=== PATIENT | male | born 1945 | race Caucasian/White ===

== ENCOUNTER 2018-10-23 01:52 | Inpatient (IN) ==
[2018-10-23] MEDS ORDERED: DUONEB (A & A) INH ONE (02:04)
[2018-10-23] MEDS ORDERED: DECADRON IM ONE (02:04)
--- NOTE | 2018-10-23 02:06 | PROVIDER DOCUMENTATION ---
HPI-Respiratory General - General Chief Complaint: Shortness of Breath Stated Complaint: SOB - COPD Time Seen by Provider: 10/23/18 02:03 Source: patient Allergies/Adverse Reactions: Patient Allergies Allergy/AdvReac Type Severity Reaction Status Date / Time cimetidine [From Tagamet] Allergy RASH Verified 10/23/18 02:03 cimetidine HCl * Allergy RASH Verified 10/23/18 02:03 [From Tagamet] ciprofloxacin [From Cipro] Allergy RASH Verified 10/23/18 02:03 ciprofloxacin HCl * Allergy RASH Verified 10/23/18 02:03 [From Cipro] Home Medications: Home Medication List Medication Instructions Recorded Confirmed Last Taken Type Albuterol Sulfate Inhaler 2 puff INH Q6H PRN PRN 10/30/12 03/11/14 10/30/12 08:30 History [Ventolin Hfa] Albuterol Sulfate Inhaler 2 puff INH TID #1 inhaler 10/30/12 03/11/14 Unknown Rx [Ventolin Hfa] Allopurinol [Zyloprim] 300 mg PO DAILY 10/30/12 03/11/14 10/29/12 20:00 History Ipratropium/Albuterol Sulfate 4 gm IH 10/30/12 03/11/14 10/30/12 06:00 History [Combivent Respimat Inhal [place]] Levothyroxine [Synthroid] 50 microgm PO DAILY 10/30/12 03/11/14 10/30/12 08:00 History Methylprednisolone [Medrol Dosepak] 4 mg PO DIRECTED #1 package 10/30/12 03/11/14 Unknown Rx Metoprolol Succinate E.r. [Toprol 50 mg PO HS 10/30/12 03/11/14 10/29/12 20:00 History Xl] Metoprolol Succinate E.r. [Toprol 100 mg PO DAILY 10/30/12 03/11/14 10/29/12 20:00 History Xl] SIMVAstatin [Zocor] 40 mg PO QHS 10/30/12 03/11/14 10/29/12 20:00 History Prednisone 50 mg PO DAILY #4 tablet 04/21/13 03/11/14 Unknown Rx Benzonatate [Tessalon] 100 mg PO Q4H PRN PRN #30 capsule 01/05/15 Unknown Rx Guaifenesin/Dm E.r. [Mucinex Dm] 1 each PO BID #20 tablet 03/11/14 Unknown Rx Oseltamivir [Tamiflu] 75 mg PO BID #10 capsule 03/11/14 Unknown Rx - History of Present Illness-Resp Nature of Presenting Problem: Patient is a 73 year old white male with history of COPD, tobacco abuse, obesity who presents with increasing shortness of breath for past 2 days. Denies fever or history of CAD. Currently taking Bactrim DS for UTI. Followed by Dr. Colvin Severity in ED: reports: mild Onset/Duration: reports: 2 days ago Timing: reports: still present Cough Quality/Degree: reports: dry cough Episode Frequency: chronic episodes Current Respiratory Medication Therapy: Initiated none Associated Symptoms: denies: cough, fever/chills Similar Symptoms Previously?: Yes Recently seen or treated by another doctor?: No Review of Systems - Adult - REVIEW OF SYSTEMS - ADULT Constitutional: denies: chills, fever Eyes: denies: dry eyes, blurred vision Ears, Nose, Mouth & Throat: denies: throat pain Cardiovascular: reports: see HPI Respiratory: reports: see HPI, shortness of breath, wheezing Gastrointestinal: denies: abdominal pain, nausea, vomiting Integumentary: reports: no symptoms reported Neurological: reports: no symptoms reported Psychiatric: reports: see HPI, anxiety Endocrine: reports: no symptoms reported Hematologic/Lymphatic: reports: no symptoms reported Allergic/Immunologic: reports: no symptoms reported Past History - Adult - PAST MEDICAL HISTORY-ADULT Review of Records: reports: Old Records Reviewed, Nursing Assessment Review, Medications Reviewed, Social history reviewed & non-contributory. Major Childhood Illnesses: reports: denies history Cardiovascular: reports: HTN, hyperlipidemia Respiratory: reports: asthma, COPD Gastrointestinal: reports: denies history Obstetrical/Gynecological: reports: denies history Genitourinary: reports: denies history Musculoskeletal: reports: denies history Neurological: reports: denies history Endocrine/Immune: reports: denies history Other Conditions: reports: denies history - PRIOR SURGERIES/PROCEDURES Surgical/Procedure History: reports: orthopedic (extremity), joint replacement - IMMUNIZATION STATUS Childhood Immunizations: See Nurse Assessment Flu Vaccine: UTD - FAMILY HISTORY Family History: reviewed, not pertinent Physical Exam-General - PHYSICAL EXAM-ADULT Initial Vital Signs Reviewed: Yes - CONSTITUTIONAL General Appearance: alert, obese, anxious - EYES Eyes: other (clear) - HEAD, EARS, NOSE, MOUTH & THROAT HENMT: moist mucous membranes, other (upper dentures) - NECK Neck: non-tender, full range of motion, supple. negative: trachial deviation - RESPIRATORY Respiratory: no pleuratic chest pain, no respiratory distress, no accessory m uscle use, decreased breath sounds, wheezing - CARDIOVASCULAR Cardiovascular: regular rate, rhythm - GASTROINTESTINAL (ABDOMEN) Abdominal Exam: non tender, soft, no organomegaly - LYMPHATIC Lymphatic: no adenopathy - MUSCULOSKELETAL Back Exam: normal inspection, no CVA tenderness Extremity: normal range of motion, non-tender, normal gait, normal inspection Peripheral Pulses: radial (R): 2+, radial (L): 2+ - SKIN Integumentary: normal color, normal turgor - NEUROLOGIC Neurologic: grossly normal, no motor/sensory deficits - PSYCHIATRIC Psych/Mental Status: anxious - HEART Score HEART Score: History: Slightly Suspicious HEART Score: ECG: Normal HEART Score: Age: > or = 65 Years HEART Score: Risk Factors for Atherosclerotic Disease: > or = 3 Risk Factors or History of Atherosclerotic Disease HEART Score: Troponin: < or = Normal Limit Total HEART Score:: 4 Progress - PLAN OF CARE/RESULTS Progress/Plan/Lab Results: Vital Signs - 8 hr 10/23/18 01:56 10/23/18 02:17 Temperature 97.8 F Pulse Rate 78 74 Respiratory Rate 18 22 Blood Pressure 140/69 O2 Sat by Pulse Oximetry 99 98 Laboratory Results - last 24 hr 10/23/18 10/23/18 10/23/18 02:15 02:15 02:15 WBC 11.05 H RBC 4.28 L Hgb 12.9 L Hct 35.1 L MCV 82.0 MCH 30.1 MCHC 36.8 RDW Std Deviation 12.3 Plt Count 236 MPV 9.9 Immature Gran % (Auto) 0.6 H Neut % (Auto) 84.4 H Lymph % (Auto) 10.2 L [place] % (Auto) 4.2 Eos % (Auto) 0.3 Baso % (Auto) 0.3 Immature Gran # (Auto) 0.07 H Neut # (Auto) 9.33 H Lymph # (Auto) 1.13 L [place] # (Auto) 0.46 Eos # (Auto) 0.03 Baso # (Auto) 0.03 D-Dimer, Quantitative 1.05 H Sodium Potassium Chloride Carbon Dioxide Anion Gap BUN Creatinine Estimated GFR/1.73 m2 BUN/Creatinine Ratio Glucose Calculated Osmolality Calcium Total Bilirubin AST ALT Alkaline Phosphatase Creatine Kinase Creatine Kinase Index CK-MB (CK-2) Troponin T < 0.010 [id number]-[id number] Pept Total Protein Albumin Globulin Albumin/Globulin Ratio 10/23/18 10/23/18 02:15 02:15 WBC RBC Hgb Hct MCV MCH MCHC RDW Std Deviation Plt Count MPV Immature Gran % (Auto) Neut % (Auto) Lymph % (Auto) [place] % (Auto) Eos % (Auto) Baso % (Auto) Immature Gran # (Auto) Neut # (Auto) Lymph # (Auto) [place] # (Auto) Eos # (Auto) Baso # (Auto) D-Dimer, Quantitative Sodium 125 L Potassium 3.9 Chloride 92 L Carbon Dioxide 20 L Anion Gap 14 BUN 28 H Creatinine 2.4 H Estimated GFR/1.73 m2 27 BUN/Creatinine Ratio 12 Glucose 170 H Calculated Osmolality 261 Calcium 8.8 Total Bilirubin 0.40 AST 16 ALT 15 Alkaline Phosphatase 82 Creatine Kinase 283 H Creatine Kinase Index 0.8 CK-MB (CK-2) 2.13 Troponin T Vel-G-Savpbsmkgpr Pept 2803 H Total Protein 6.2 L Albumin 4.1 Globulin 2.0 Albumin/Globulin Ratio 2.0 Orders Category Date Time Status Admit - [facility] Routine AdmDCTranf 10/23/18 03:26 Active Activity - Strict Bedrest ORDERED Care 10/23/18 03:26 Active Cardiac Monitoring DIRECTED Care 10/23/18 02:08 Active Resuscitation Status Routine Care 10/23/18 03:26 Ordered Saline Loc DIRECTED Care 10/23/18 03:26 Active Vital Signs Order Q 4-HR ASSESS Care 10/23/18 03:26 Active Z-Document. for Tele Applied ORDERED Care 10/23/18 03:28 Active Heart Healthy Diet Diet 10/23/18 03:27 Active CHEST-PORTABLE [RAD] Stat Exams 10/23/18 02:04 Taken LUNG SCAN / VQ [NM] Stat Exams 10/23/18 03:28 Ordered BNP [PRO B-NATRIURETIC PEPTIDE] Stat Lab 10/23/18 02:15 Completed CBC WITH ELECTRONIC DIFF [HEME] Stat Lab 10/23/18 02:15 Completed CK PROFILE [SP CHEM] Stat Lab 10/23/18 02:15 Completed CMP [COMPREHENSIVE METABOLIC PANEL] [CHEM] Stat Lab 10/23/18 02:15 Completed D-DIMER [COAG] Stat Lab 10/23/18 02:15 Completed TROPONIN T Stat Lab 10/23/18 02:15 Completed Albuterol 2.5MG/Ipratrop 0.5MG [Duoneb (A & A)] Med 10/23/18 02:04 Discontinued 3 ml INH NOW ONE Albuterol 2.5MG/Ipratrop 0.5MG [Duoneb (A & A)] Med 10/23/18 03:30 Active 3 ml INH RTQ4H Dexamethasone [Decadron] Med 10/23/18 02:04 Discontinued 10 mg IM NOW ONE Methylprednisolone Sod Succ [Solu-Medrol] Med 10/23/18 02:24 Discontinued 125 mg IV NOW ONE Methylprednisolone Sod Succ [Solu-Medrol] Med 10/23/18 08:30 Active 125 mg IV Q6H Sulfamethoxazole/Tmp D.s. [Septra Ds] Med 10/23/18 09:00 Ordered 1 each PO BID Aerosol Treatments Routine Oth 10/23/18 02:04 Completed Aerosol Treatments Routine Oth 10/23/18 03:29 Active Aerosol Treatments Stat Oth 10/23/18 02:04 Completed Aerosol Treatments Stat Oth 10/23/18 03:29 Active Oxygen Device Stat Oth 10/23/18 02:08 Active Telemetry [OM.EQ] Routine Oth 10/23/18 03:26 Active EKG [EKG] Stat Ther 10/23/18 01:59 Draft Transfer/Admit Order [TRANSFER] Routine Transfer 10/23/18 03:30 Ordered Result Diagrams: 10/23/18 02:15 10/23/18 02:15 - EKG 1 Time of EKG reading by physician:: 01:58 EKG Read and Signed by:: Ashkan Page EKG Interpretation (*Must complete 3 of following elements*): Normal Rate: 78 Rhythm: NSR [place]: normal QRS: normal OR Interval: normal ST Wave: normal Comments: no STEMI Departure - Departure Date of Disposition Decision: 10/23/18 Time of Disposition Decision: 03:43 DIAGNOSIS: COPD exacerbation, Elevated d-dimer Disposition: ADMITTED INPATIENT 09 Certified Medical Emergency: Emergent Condition: Stable Referrals and Follow-Ups: Bong Colvin [Primary Care Provider] - - Critical Care Note This patient required my direct & personal management of CC.: No Attestation - Physician/ BROOKE Attestation Patient care was provided by Advanced Practice Provider:: No The physician spent face to face time with patient:: Yes Advanced Practice Provider documentation review:: Supervising physician onsite and consulted in the evaluation and care of this patient. The physician did have a face to face encounter with the patient.
[2018-10-23] MEDS ORDERED: SOLU-MEDROL IV ONE (02:24)
[2018-10-23 02:42] LABS: BASO# 0.03 X1000 (0.0-0.2); BASO% 0.3 % (0.0-0.8); EOS# 0.03 X1000 (0.0-0.7); EOS% 0.3 % (0.0-10.0); HEMATOCRIT 35.1 % (42.0-52.0); HEMOGLOBIN 12.9 g/dL (14.0-18.0); IMM GRAN# 0.07 X1000 (0.0-0.04); IMM GRAN% 0.6 % (0.0-0.5); LYMPH# 1.13 X1000 (1.2-3.4); LYMPH% 10.2 % (20.5-51.1); MCH 30.1 PG (27-31); MCHC 36.8 g/dL (33-37); MONO# 0.46 X1000 (0.11-0.59); MONO% 4.2 % (1.7-9.3); MPV 9.9 FL (7.4-10.4); NEUT# 9.33 X1000 (1.4-6.5); NEUT% 84.4 % (42.2-75.2); PLT 236 X1000 (130-400); RBC 4.28 XMIL (4.7-6.1); RDW 12.3 % (11.5-14.5); WBC 11.05 X1000 (4.8-10.8)
[2018-10-23 02:45] LABS: ALBUMIN 4.1 g/dL (3.5-5.0); CALCIUM 8.8 mg/dL (8.8-10.2); CREATININE 2.4 mg/dL (0.7-1.2); POTASSIUM 3.9 mmol/L (3.5-5.1); TOTAL BILIRUBIN 0.4 mg/dL (0.20-1.00); TOTAL PROTEIN 6.2 g/dL (6.3-8.3)
[2018-10-23 03:00] LABS: CK INDEX 0.8 (0.0-2.5); CK-MB 2.13 ng/mL (0.0-5.0)
--- NOTE | 2018-10-23 03:25 | EKG Report ---
Test Performed on : 10/23/2018 01:57:57 AM Test Reason : SOB Blood Pressure : / mmHG Vent. Rate : 078 BPM Atrial Rate : 078 BPM P-R Int : 176 ms QRS Dur : 094 ms QT Int : 400 ms P-R-T Axes : 058 059 071 degrees QTc Int : 456 ms Normal sinus rhythm. Normal ECG When compared with ECG of 20-MAY-2010 15:44, No significant change was found Unconfirmed Result
[2018-10-23] MEDS ORDERED: NS 1,000 ML IV ONE (03:45)
[2018-10-23] MEDS: DUONEB (A & A) INH SCH ×8 (03:54→23:15)
--- NOTE | 2018-10-23 06:16 | Diag Imaging Result Doc PS360 ---
EXAM: CHEST-PORTABLE HISTORY: sob TECHNIQUE: Chest two views COMPARISON: 03/11/2014 FINDINGS: The lungs are well expanded. The heart is not enlarged. The vessels are not distended. There are no infiltrates. No effusion identified. Right granuloma. IMPRESSION: Negative exam. Electronically signed by Devan Liriano 10/23/2018 6:13 AM
[2018-10-23] MEDS ORDERED: SOLU-MEDROL IV SCH ×2 (08:30→08:45)
[2018-10-23] MEDS: SEPTRA DS PO SCH ×2 (08:31→20:32)
[2018-10-23] MEDS ORDERED: NORVASC PO SCH (09:00)
[2018-10-23] MEDS ORDERED: ULORIC PO SCH (09:00)
[2018-10-23] MEDS: ZYRTEC PO SCH (09:30)
[2018-10-23] MEDS: SOLU-MEDROL IV SCH ×2 (09:31→17:11)
--- NOTE | 2018-10-23 12:29 | Diag Imaging Result Doc PS360 ---
EXAM: LUNG SCAN / VQ INDICATION: sob,elevated d-dimer TECHNIQUE: 38.9 mCi of technetium 99 DTPA was administered for the ventilation portion of the scan. 5.7 mCi of IV technetium 99 MAA was administered for the perfusion portion of the scan. COMPARISON: None. FINDINGS: No matched or unmatched perfusion defects are appreciated. There is some condensation of the aerosolized radiotracer in the central bronchi on the ventilation portion of the scan. The ventilation images are unremarkable, otherwise. IMPRESSION: Negative VQ scan. Electronically signed by Tarun Kaye 10/23/2018 12:27 PM
[2018-10-23] MEDS: NORCO-10 PO PRN (12:57)
--- NOTE | 2018-10-23 13:34 | HISTORY AND PHYSICAL ---
CHIEF COMPLAINT: Shortness of breath. HISTORY OF PRESENT ILLNESS: This is a 73-year-old gentleman with a history of COPD and hypertension. He presents to the emergency room complaining of increasing shortness of breath over the past 2 days. He states it started out as dyspnea on exertion and over the last 10 to 12 hours it has progressed to shortness of breath at rest. He does report a dry cough. He denies any fevers or chills. He does report being evaluated by his primary care physician and told that he had a urinary tract infection and starting on Bactrim. He has not been called regarding a culture or culture results. PAST MEDICAL HISTORY: 1. Asthma. 2. Chronic obstructive pulmonary disease. 3. Hyperlipidemia. 4. Hypertension. PAST SURGICAL HISTORY: Bilateral hip replacement, prostate surgery and cataract removal. SOCIAL HISTORY: He denies alcohol or illicit drug use. He does smoke about a pack a day. ALLERGIES: Cipro which causes a rash, Tagamet which causes a rash. HOME MEDICATIONS: A list will be obtained by the nursing staff and once verified will review and restart as appropriate. REVIEW OF SYSTEMS: Discussed with patient with pertinent positives stated in the HPI. He denied any syncope, dizziness, any chest pain or palpitations, any fevers or chills, recent weight loss or weight gain, productive cough, any nausea, vomiting, diarrhea, constipation, black or bloody vomitus or stools, hematuria, dysuria, frequency, urgency. PHYSICAL EXAMINATION: GENERAL: This is a 73-year-old gentleman who is sitting up in the bed in no distress. VITAL SIGNS: Blood pressure is 129/70 with a heart rate of 79, respirations 18, temperature 97.7 degrees oral with room air saturations 100%. HEENT: Pupils are equal, round, react to light EOMs are intact. Sclerae are anicteric. Head is normocephalic, atraumatic. Mucous membranes are moist. NECK: Supple with trachea midline. CARDIOVASCULAR: Regular rate and rhythm. S1 and S2 appreciated. He does have some left lower extremity edema. Calves are nontender bilateral. PULMONARY: Breath sounds are diminished at bilateral bases. Chest rises and falls symmetric with respiration. GASTROINTESTINAL: Abdomen is soft, nontender, nondistended with bowel sounds in all 4 quadrants. NEUROLOGIC: He is alert and oriented. SKIN: Warm and dry. LABS: WBC is 11 with hemoglobin 12.9, hematocrit 35.1, and platelets of 236,000. D-dimer is 1.05. Sodium 125, potassium 3.9, BUN 28, creatinine 2.4 with a glucose of 170. Chest x-ray revealed lungs are well expanded. Heart is not enlarged. Vessels are not distended. There are no infiltrates. No effusion identified. V/Q scan revealed negative V/Q scan. ASSESSMENT AND PLAN: 1. Shortness of breath. This is likely a chronic obstructive pulmonary disease exacerbation. Start duo nebs q.4 hours when awake. steroids to taper. 2. Hyponatremia. The patient is on triamterene hydrochlorothiazide. We will hold this at present. Trend his labs daily. 3. Elevated D-dimer. V/Q scan was negative. The patient does have left lower extremity edema. bilateral lower extremity Doppler. 4. Acute kidney injury in the setting of chronic kidney disease. In looking back his baseline creatinine is 1.7 to 1.9. Will continue with gentle hydration, hold diuretics. Hold renal toxic medications and renal dose medications as appropriate. 5. Hypothyroid. We will check a TSH and continue his home medication. 6. Questionable urinary tract infection. obtain a urinalysis as well as a urine culture and antibiotics will be culture driven. 7. Hypertension. Will continue home medicines as appropriate. CBC and a BMP in the morning. Plan discussed with Dr Carreon Further treatments pending hospital course. Dictated by SAMUEL Cortes for Servando Carreon MD cc: SAMUEL Cortes MD [facility]
[2018-10-23 15:25] LABS: URINE SOURCE CLEAN CATCH
[2018-10-23 15:38] LABS: BILIRUBIN URINE NEGATIVE (NEGATIVE); BLOOD URINE 4+ (NEGATIVE); CLARITY CLEAR (CLEAR); COLOR YELLOW; KETONE URINE NEGATIVE (NEGATIVE); LEUKOCYTES URINE TRACE (NEGATIVE); NITRITE URINE NEGATIVE (NEGATIVE); PH URINE 6.5; PROTEIN URINE TRACE mg/dL (NEGATIVE); UROBILINOGEN URINE NORMAL
[2018-10-23 15:49] LABS: URINE BACTERIA 1+ /HFP; URINE EPITHELIAL CELLS >10 /HPF (<10)
[2018-10-23 15:50] LABS: URINE CAST NONE SEEN /LPF; URINE CRYSTAL NONE SEEN /HPF; URINE YEAST NONE SEEN /HPF
--- NOTE | 2018-10-23 15:51 | Extremity Venous Study ---
EXAM: Venous U/S Bilateral Legs HISTORY: elevate ddimer, LLE edema TECHNIQUE: Bilateral lower extremity venous Doppler ultrasound COMPARISON: None. FINDINGS: Right: There is good flow and compressibility in the veins of the right lower extremity. No thrombus. Left: There is good flow and compressibility of the veins of the left lower extremity. No thrombus. IMPRESSION: No evidence of deep venous thrombosis within either lower extremity. Electronically signed by Devan Liriano 10/23/2018 3:48 PM
[2018-10-23] MEDS: ULORIC PO SCH (17:11)
[2018-10-23] MEDS: NORVASC PO SCH (17:11)
[2018-10-23] MEDS: FLOMAX PO SCH (17:27)
--- NOTE | 2018-10-23 19:38 | HISTORY AND PHYSICAL ---
Patient presented to the hospital with increased cough, congestion, increased work of breathing, shortness of breath. We are going to admit him to the hospital, place him on antibiotics, breathing treatments. He has been on antibiotics recently and he has had some complaints of diarrhea, although he currently does not have it. We are going to attempt to check a Clostridium difficile as well, and follow his hyponatremia. cc: Servando Carreon MD
[2018-10-23] MEDS: ZOCOR PO SCH (20:33)
[2018-10-23] MEDS ORDERED: FLOMAX PO SCH (21:00)
[2018-10-24] MEDS: NORCO-10 PO PRN (01:40)
[2018-10-24] MEDS: SOLU-MEDROL IV SCH ×3 (01:40→17:32)
[2018-10-24 07:16] LABS: HEMATOCRIT 31.9 % (42.0-52.0); HEMOGLOBIN 11.3 g/dL (14.0-18.0); IMM GRAN# 0.13 X1000 (0.0-0.04); IMM GRAN% 0.6 % (0.0-0.5); LYMPH% 4.6 % (20.5-51.1); MCH 29.7 PG (27-31); MCHC 35.4 g/dL (33-37); MCV 83.7 FL (81-99); MONO# 0.87 X1000 (0.11-0.59); MPV 10.4 FL (7.4-10.4); NEUT# 19.72 X1000 (1.4-6.5); NEUT% 90.8 % (42.2-75.2); PLT 248 X1000 (130-400); RBC 3.81 XMIL (4.7-6.1); RDW 12.6 % (11.5-14.5); WBC 21.72 X1000 (4.8-10.8)
[2018-10-24] MEDS: DUONEB (A & A) INH SCH ×5 (07:17→23:12)
[2018-10-24 07:45] LABS: CALCIUM 8.7 mg/dL (8.8-10.2); CREATININE 3.2 mg/dL (0.7-1.2); POTASSIUM 4.3 mmol/L (3.5-5.1)
[2018-10-24] MEDS: PRILOSEC PO SCH (07:45)
[2018-10-24] MEDS: SEPTRA DS PO SCH ×3 (07:46→21:41)
[2018-10-24] MEDS: SYNTHROID PO SCH (07:46)
--- NOTE | 2018-10-24 09:36 | Diag Imaging Result Doc PS360 ---
EXAM: KUB ABDOMEN HISTORY: ?constipation TECHNIQUE: Abdomen two views COMPARISON: 01/30/2018 FINDINGS: There is stool in the proximal colon. No significant stool in the mid and distal colon. No bowel obstruction. No organomegaly. No foreign body. No abnormal abdominal calcifications. Prior orthopedic placement of each hip. IMPRESSION: No significant constipation Electronically signed by Devan Liriano 10/24/2018 9:34 AM
[2018-10-24 09:39] LABS: ANISOCYTOSIS 1+; LYMPHS 4 % (21-51); MONO 10 % (1-9); SEGS 86 % (42-75)
[2018-10-24] MEDS: ZYRTEC PO SCH (10:36)
[2018-10-24] MEDS: MIRALAX PO SCH (10:37)
[2018-10-24] MEDS ORDERED: LACTULOSE PO ONE (13:32)
--- NOTE | 2018-10-24 15:55 | PROGRESS NOTE ---
DATE: 10/24/2018 SUBJECTIVE: Patient overall notes that he is feeling better. Denies any fevers or chills. Denies cough, congestion. States his shortness of breath has improved. PHYSICAL EXAMINATION: Vital Signs: Temperature 98.2 degrees, pulse 86, respiratory rate 18, BP 114/62. General: Patient is a 73-year-old male who is in no current respiratory distress. He is lying in the bed. HEENT: Normocephalic. Neck: Supple. Cardiovascular: Regular rate. Chest: Clear. Abdomen: Soft. Extremities: Moves all extremities. ASSESSMENT: 1. Shortness of breath. 2. Hyponatremia. 3. Elevated D-dimer with a negative V/Q scan. PLAN: We will continue to follow. Encourage out of bed. Hopefully home over the next day or two. cc: Servando Carreon MD
[2018-10-24] MEDS: FLOMAX PO SCH (17:32)
[2018-10-24] MEDS: ULORIC PO SCH (17:32)
[2018-10-24] MEDS: NORVASC PO SCH (17:32)
[2018-10-24] MEDS: NS 1,000 ML IV SCH (17:32)
[2018-10-24] MEDS: ZOCOR PO SCH (21:41)
[2018-10-25] MEDS: NORCO-10 PO PRN ×2 (02:05→15:50)
[2018-10-25] MEDS: SOLU-MEDROL IV SCH ×3 (04:49→18:44)
[2018-10-25] MEDS: SYNTHROID PO SCH ×2 (05:45→06:35)
[2018-10-25 05:58] LABS: BASO# 0.01 X1000 (0.0-0.2); HEMATOCRIT 31.3 % (42.0-52.0); IMM GRAN# 0.21 X1000 (0.0-0.04); LYMPH# 0.76 X1000 (1.2-3.4); LYMPH% 3.7 % (20.5-51.1); MCH 29.6 PG (27-31); MCHC 35.1 g/dL (33-37); MCV 84.1 FL (81-99); MONO# 1.23 X1000 (0.11-0.59); NEUT# 18.33 X1000 (1.4-6.5); NEUT% 89.3 % (42.2-75.2); PLT 264 X1000 (130-400); RBC 3.72 XMIL (4.7-6.1); RDW 12.8 % (11.5-14.5); WBC 20.54 X1000 (4.8-10.8)
[2018-10-25] MEDS: DUONEB (A & A) INH PRN (05:58)
[2018-10-25 06:15] LABS: ALBUMIN 4.1 g/dL (3.5-5.0); CALCIUM 8.5 mg/dL (8.8-10.2); CREATININE 3.6 mg/dL (0.7-1.2); MAGNESIUM 1.8 mg/dL (1.5-2.7); POTASSIUM 4.3 mmol/L (3.5-5.1); TOTAL BILIRUBIN 0.3 mg/dL (0.20-1.00); TOTAL PROTEIN 6.4 g/dL (6.3-8.3)
[2018-10-25] MEDS: PRILOSEC PO SCH (06:18)
[2018-10-25 07:03] LABS: LYMPHS 6 % (21-51); MONO 5 % (1-9); SEGS 91 % (42-75)
[2018-10-25] MEDS: DUONEB (A & A) INH SCH ×5 (07:53→23:18)
[2018-10-25] MEDS ORDERED: SEPTRA DS PO SCH (09:00)
[2018-10-25] MEDS: ZYRTEC PO SCH ×2 (09:20→09:24)
[2018-10-25] MEDS: NS 1,000 ML IV SCH (09:20)
[2018-10-25] MEDS: MIRALAX PO SCH (09:20)
[2018-10-25] MEDS ORDERED: FLEET MINERAL OIL ENEMA PR ONE (16:03)
[2018-10-25] MEDS ORDERED: FLEET ENEMA PR ONE (16:03)
[2018-10-25] MEDS: ULORIC PO SCH (16:39)
[2018-10-25] MEDS: NORVASC PO SCH (16:39)
[2018-10-25] MEDS: FLOMAX PO SCH (16:39)
[2018-10-25 16:42] LABS: UR CREAT RANDOM 85.6 mg/dL (14-26); UR PROT RANDOM 6.5 mg/dL
[2018-10-25] MEDS: ROCEPHIN 2 GM in NS 50 ML IV SCH (18:44)
[2018-10-25] MEDS: ZITHROMAX 500 MG/NS 500 MG/250 ML IVPB IV SCH (18:47)
[2018-10-25] MEDS: ZOCOR PO SCH (20:06)
--- NOTE | 2018-10-25 21:17 | PROGRESS NOTE ---
DATE: 10/25/2018 SUBJECTIVE: Patient himself has no new complaints. He denies any fevers or chills. States he still has some shortness of breath and fatigue. States he overall just generally does not feel well. He feels as though he is getting worse, not better. OBJECTIVE: Temperature 97.5, pulse 106, respiratory 18, BP 125/61.General: Patient is in no current distress. HEENT: Normocephalic. Neck: Supple. Cardiovascular: Tachycardia. No murmurs. Chest: Decreased breath sounds, but equal bilaterally. Abdomen: Soft, obese, nondistended. Extremities: Moves all extremities. He does have 2+ edema in his lower extremities. ASSESSMENT: 1. Lower extremity edema. 2. Acute on chronic renal failure. His creatinine continues to climb. 3. Leukocytosis. 4. Metabolic acidosis, likely secondary to renal disease. PLAN: At this point, we are going to attempt to transfer him to [facility] to see him as his creatinine continues to worsen. He has hyponatremia. He has been on Bactrim, which certainly could have contributed. We are going to stop this and ask Dr. Gibson for assistance. cc: Servando Carreon MD
[2018-10-25] MEDS: TOPROL XL PO SCH (21:38)
[2018-10-26] MEDS: NORCO-10 PO PRN ×3 (00:19→22:02)
[2018-10-26] MEDS: SOLU-MEDROL IV SCH ×3 (01:39→17:58)
[2018-10-26] MEDS: DUONEB (A & A) INH PRN (03:27)
[2018-10-26] MEDS: SYNTHROID PO SCH (06:03)
[2018-10-26] MEDS: PRILOSEC PO SCH (06:03)
[2018-10-26 07:28] LABS: BASO# 0.01 X1000 (0.0-0.2); BASO% 0.1 % (0.0-0.8); HEMATOCRIT 29.6 % (42.0-52.0); HEMOGLOBIN 10.3 g/dL (14.0-18.0); IMM GRAN% 1.5 % (0.0-0.5); LYMPH# 0.68 X1000 (1.2-3.4); MCH 29.3 PG (27-31); MCHC 34.8 g/dL (33-37); MCV 84.1 FL (81-99); MONO# 0.85 X1000 (0.11-0.59); MONO% 6.3 % (1.7-9.3); MPV 10.3 FL (7.4-10.4); NEUT# 11.78 X1000 (1.4-6.5); NEUT% 87.1 % (42.2-75.2); PLT 260 X1000 (130-400); RBC 3.52 XMIL (4.7-6.1); RDW 12.6 % (11.5-14.5); WBC 13.52 X1000 (4.8-10.8)
[2018-10-26 07:45] LABS: CALCIUM 7.7 mg/dL (8.8-10.2); CREATININE 3.7 mg/dL (0.7-1.2); PHOSPHORUS 5.1 mg/dL (2.7-4.5); POTASSIUM 4.7 mmol/L (3.5-5.1)
[2018-10-26 07:51] LABS: BANDS 1 % (0-1); LYMPHS 7 % (21-51); MONO 6 % (1-9); SEGS 85 % (42-75)
[2018-10-26] MEDS: DUONEB (A & A) INH SCH ×4 (08:15→16:39)
[2018-10-26] MEDS: TOPROL XL PO SCH ×2 (10:06→20:38)
[2018-10-26] MEDS: MIRALAX PO SCH ×3 (10:06→22:03)
[2018-10-26] MEDS: ZYRTEC PO SCH (10:07)
--- NOTE | 2018-10-26 10:59 | PROGRESS NOTE ---
DATE: 10/26/2018 SUBJECTIVE: The patient reports breathing better. Still coughing some yellowish sputum. Denies any fever or chills. OBJECTIVE: Vital Signs: Temperature 97.9 degrees, heart rate 84, respiratory rate 14, blood pressure 120/59, O2 saturation 96% on 2 L nasal cannula. General Examination: This is a chronically ill-appearing, 73-year-old, male, lying in bed, in no acute distress. Cardiovascular Examination: S1 and S2 heard. No murmurs, gallops, or rubs. Regular rate and rhythm. Respiratory Examination: Diminished breath sounds globally with minimal wheezing noted in both pulmonary bases. Patient is not using any accessory muscles or having work of breathing. Abdomen: Soft. Nontender to palpation. Bowel sounds present. No organomegaly. Extremities: No clubbing, cyanosis, or edema. Peripheral pulses present in both legs. Neurological Examination: The patient is alert and oriented x3. Moves 4 extremities. Laboratory Data: White cell count 13.52, hemoglobin 10.3, hematocrit 29.6, platelets 260,000. Sodium 123, creatinine 3.7. ASSESSMENT AND PLAN: 1. Acute respiratory failure secondary to chronic obstructive pulmonary disease exacerbation. We will continue with DuoNeb every 4 hours as scheduled. Because of elevation of white cell count, we decided to do antibiotics; in this case, ceftriaxone and azithromycin. We will continue with the same medications. 2. Hyponatremia. That was a finding at admission. He has been on triamterene, hydrochlorothiazide. Because his labs persisted to be low and the fact that this patient has a heavy history of smoking, I prefer to do a CT of the chest without contrast and see what it shows to rule out any lung cancer. 3. Acute kidney injury in the setting of chronic kidney disease. Creatinine baseline apparently was 1.7 to 1.9 but that continued to get worse so the patient got transferred to this hospital. Dr. Gibson from nephrology has been consulted. We will follow recommendations. At this point, the creatinine has stabilized to 1.7. We will continue to monitor. 4. Hypothyroidism. We will continue with levothyroxine. 5. Urinary tract infection ruled out. 6. Hypertension. We will continue home medications. 7. Disposition. We will continue to monitor this patient closely. cc: Ronn Ceja MD
--- NOTE | 2018-10-26 11:21 | Diag Imaging Result Doc PS360 ---
CT THORAX W/O CONTRAST - 10/26/2018 INDICATION: hyponatremia, longstanding smoking COMPARISON: 10/29/2013 FINDINGS: There is no adenopathy. Heart and great vessels are normal. Stable small benign cysts in the liver. There is a stable small calcified gallstone in the gallbladder. No gallbladder inflammation. Otherwise upper abdominal images are normal. There is severe COPD. No nodules or infiltrates. Stable calcified granuloma in the right midlung. Bony structures are intact and well mineralized. IMPRESSION: Severe COPD. No suspicious findings seen. No change from prior. This exam was performed using automated exposure control, adjustment of mA or kV according to patient size, and/or use of iterative reconstruction technique Electronically signed by Axel Lino 10/26/2018 11:19 AM
[2018-10-26] MEDS ORDERED: FLEET ENEMA PR ONE (14:46)
[2018-10-26] MEDS: SODIUM BICARBONATE PO SCH ×2 (15:23→20:38)
[2018-10-26] MEDS: ULORIC PO SCH (16:36)
[2018-10-26] MEDS: FLOMAX PO SCH (16:36)
--- NOTE | 2018-10-26 16:58 | NEPHROLOGY CONSULTATION ---
DATE: 10/26/2018 REASON FOR ADMISSION: Increased work of breathing and swelling. REASON FOR CONSULT: Worsening renal function with continued increased work of breathing and swelling CONSULTING PHYSICIAN: Servando Carreon MD, per SAMUEL Cheng. HISTORY OF PRESENT ILLNESS: Mr. Fofana is a 73-year-old white male, who has been seen by our practice in the past during his hospitalization. We have not had any follow-ups in our office. His baseline creatinine is noted to be approximately 1.5. He had presented to [place]'s emergency department with increasing shortness of breath for 2 days prior to his admission. Stated that it was worse upon exertion. This had lasted for a long period of time without any resolve. Reported dry cough and presented himself to the emergency room. At that time, he denied chest pain. Positive for increased work of breathing. Positive for increased lower extremity swelling. Decreased appetite. Negative fever or chills. No nausea/vomiting or diarrhea. The patient stated that he had seen his primary care for a urinary tract infection and was placed on Bactrim. Cultures are still currently pending in this context. The patient continued to take his home medications. PAST MEDICAL HISTORY: Asthma, COPD, hyperlipidemia, hypertension, and chronic kidney disease, baseline creatinine 1.5. PAST SURGICAL HISTORY: Bilateral hip replacement, prostate surgery, and cataract removal. SOCIAL HISTORY: Denies any alcohol or illicit drug use. Does smoke about a pack a day. He states he lives with his spouse. FAMILY HISTORY: Noncontributory. ALLERGIES: Listed as Cipro causing rash, Tagamet causing rash. HOME MEDICATIONS: Zocor, Toprol-XL, Uloric, hydrocodone, Combivent Respimat, levocetirizine, omeprazole, tamsulosin, triamterene/hydrochlorothiazide, amlodipine, Advair, and levothyroxine. REVIEW OF SYSTEMS: Review of systems x10 with pertinent positives listed above in the HPI. PHYSICAL EXAMINATION: The patient's most recent vital signs: Temperature 97.9 degrees blood pressure 129/70, heart rate 59 respirations, he is currently on 2 L nasal cannula, last recorded saturation 97% Intake and Output: He has had 2400 in, 250 out to void, though he has had 1 L in previous. On documentation, he felt that he had voided more in the last 24 hours since his transfer to [facility]. General: This is a 73-year-old white male. He is currently resting quietly in bed. States that he feels that his breathing has slightly improved, though his swelling remains prominent. He appears chronically ill. No acute distress. HEENT: Normocephalic, atraumatic. Conjunctiva is pale pink. He has EUGENIA. Mucous membranes are dry. Neck: Supple. Trachea midline. No evidence of JVD. Cardiovascular: He has regular rate and rhythm. No murmur or gallop appreciated. Lungs: Diminished breath sounds bilateral. He does have some wheezing present in both pulmonary bases. Remains on O2 support. Abdomen: Obese, soft, nontender. Positive bowel sounds present. Genitourinary: Not inspected. Minimal void. Requested to keep strict intakes and outputs. Extremities: The patient has 2+ lower extremity edema. No clubbing or cyanosis. Neurological: He is alert and oriented x3. Integumentary: Patient does have dryness with possible chronic venous stasis to the lower extremities bilateral. LABORATORY DATA: This a.m.: Sodium is 123, potassium is 4.7, chloride is 89, CO2 of 16, BUN 80, creatinine 3.7, glucose 179, his anion gap is 18, calcium is 7.7, phosphorus is 5.1, albumin is 4. White count 13.52, hemoglobin 10.3, hematocrit 29.6 with a platelet count of 260,000. The patient's urine electrolytes indicate negative urine eosinophils, indicates a FENa score of 0.34%. ASSESSMENT: 1. Acute kidney injury on chronic kidney disease, stage 3, in the context of fluid volume overload. Low FENa. No changes today. Observe his response. 2. Electrolytes and acid-base balance. Sodium of 123 with a CO2 of 16. The patient has a mild anion gap. Again, we will follow. 3. Anemia. This is close to target. 4. Leukocytosis. Patient currently is on renal-dosed antibiotics followed by primary care. I would like to thank you for allowing us to follow with this patient. Dictated by SAMUEL Rizo for Santos Gibson MD Face to face encounter, data reviewed, discussed with Jody Garcia on 10/26/18. I agree with the above assessment and plan of care. cc: SAMUEL Rizo MD MTDD
--- NOTE | 2018-10-26 17:01 | Diag Imaging Result Doc PS360 ---
US RENAL 2 (RETROPER) COMPLETE - 10/26/2018 INDICATION: gil/arf TECHNIQUE: COMPARISON: 12/06/2017 FINDINGS: There are small bilateral renal cysts measuring about 1.5 cm each. Otherwise the kidneys are normal. No hydronephrosis or hydroureter. The urinary bladder is normal. The right kidney measures 11.4 x 5.7 x 5.5 cm. The left kidney measures 11.7 x 5.5 x 4.8 cm. IMPRESSION: Negative exam. Electronically signed by Axel Lino 10/26/2018 4:59 PM
[2018-10-26] MEDS: ROCEPHIN 2 GM in NS 50 ML IV SCH (18:30)
[2018-10-26] MEDS: ZITHROMAX 500 MG/NS 500 MG/250 ML IVPB IV SCH (19:35)
[2018-10-26] MEDS: ZOCOR PO SCH (20:38)
[2018-10-27] MEDS: DUONEB (A & A) INH SCH ×8 (00:10→23:40)
[2018-10-27] MEDS: SOLU-MEDROL IV SCH ×2 (01:20→09:59)
[2018-10-27] MEDS: PRILOSEC PO SCH (06:02)
[2018-10-27] MEDS: SYNTHROID PO SCH (06:02)
[2018-10-27 07:11] LABS: BASO# 0.02 X1000 (0.0-0.2); BASO% 0.1 % (0.0-0.8); HEMATOCRIT 31.2 % (42.0-52.0); HEMOGLOBIN 11.2 g/dL (14.0-18.0); IMM GRAN% 2.2 % (0.0-0.5); LYMPH# 0.77 X1000 (1.2-3.4); LYMPH% 5.6 % (20.5-51.1); MCHC 35.9 g/dL (33-37); MCV 83.6 FL (81-99); MONO# 0.96 X1000 (0.11-0.59); MPV 10.6 FL (7.4-10.4); NEUT# 11.63 X1000 (1.4-6.5); NEUT% 85.1 % (42.2-75.2); PLT 261 X1000 (130-400); RBC 3.73 XMIL (4.7-6.1); RDW 12.5 % (11.5-14.5); WBC 13.68 X1000 (4.8-10.8)
[2018-10-27 07:20] LABS: ALBUMIN 4.2 g/dL (3.5-5.0); CALCIUM 8.9 mg/dL (8.8-10.2); CREATININE 3.2 mg/dL (0.7-1.2); LYMPHS 6 % (21-51); MONO 7 % (1-9); POTASSIUM 5.2 mmol/L (3.5-5.1); SEGS 87 % (42-75)
[2018-10-27] MEDS: MIRALAX PO SCH ×2 (09:58→20:32)
[2018-10-27] MEDS: ZYRTEC PO SCH (09:59)
[2018-10-27] MEDS: TOPROL XL PO SCH ×2 (09:59→20:32)
[2018-10-27] MEDS: SODIUM BICARBONATE PO SCH ×2 (09:59→20:32)
[2018-10-27] MEDS ORDERED: SAMSCA PO ONE (11:15)
--- NOTE | 2018-10-27 11:54 | NEPHROLOGY PROGRESS NOTE ---
DATE: 10/27/2018 SUBJECTIVE: He is feeling much better today, less tremulous. No shortness of breath, nausea or vomiting. OBJECTIVE: Vital Signs: Blood pressure 135/77, heart rate 83, respiration 19, afebrile. General: No acute distress. Skin: Warm and dry. Conjunctivae are pink. Neck: Neck veins are not appreciated. Heart: Regular. Lungs: Equal. No crackles or wheezes. Abdomen: Soft, nontender. Bowel sounds are present. Extremities: With 1+ edema. No clubbing or cyanosis. IMPRESSION: 1. Acute kidney injury overlying chronic kidney disease. Baseline creatinine 1. His creatinine has peaked and is improving. No further intervention. 2. Hyponatremia. He had a sodium of 125 on presentation., 121 today. The only medication that he is taking that I would expect would effect his sodium is his methylprednisolone. He is receiving 40 mg q.8 hours. I will change that to 40 mg p.o. once daily. Fluid restrict. We will check urine osmolality. cc: Santos Gibson MD
--- NOTE | 2018-10-27 12:13 | PROGRESS NOTE ---
DATE: 10/27/2018 SUBJECTIVE: Patient is breathing better. Still coughing some yellowish sputum but denies any fever or chills. OBJECTIVE: Vital Signs: Temperature 98.1 degrees, heart rate 81, respiratory rate 19, blood pressure 141/69, O2 saturation 96% on room air. General Examination: This is a chronically ill- appearing 73-year-old male, lying in bed in no acute distress. Cardiovascular: S1, S2 heard. No murmurs, gallops, or rubs. Regular rate and rhythm. Respiratory Exam: Diminished breath sounds with no wheezing noted today. The patient is not using any accessory muscles or having work of breathing. Abdomen: Soft, nontender to palpation. Bowel sounds present. No organomegaly. Extremities: No clubbing, cyanosis, or edema. Peripheral pulses present in both legs. Neurological: Patient is alert and oriented x3. Moves 4 extremities. LABORATORY DATA: Sodium is 121 with potassium 5.2 and creatinine 3.2. ASSESSMENT AND PLAN: 1. Acute respiratory failure secondary to chronic obstructive pulmonary disease exacerbation. We will continue with DuoNeb every 4 hours as scheduled. Clinically, patient is improving. The patient is also receiving ceftriaxone and azithromycin. We will continue with same medications. 2. Hyponatremia. That condition is getting worse. He has been at presentation on triamterene/hydrochlorothiazide. We have done a CT of the chest to rule out any malignancy causing hyponatremia or malignancy anything. At this time, I prefer to give 1 dose of Samsca and recheck BMP tomorrow. 3. Hyperkalemia. We will provide Lokelma and will check BMP tomorrow. 4. Acute kidney injury in the setting of chronic kidney disease. Creatinine is getting better 3.7 yesterday and 3.2 today. We will continue to monitor. 5. Hypothyroidism. We will continue with home doses of levothyroxine. 6. Urinary tract infection that has been ruled out. 7. Hypertension. Blood pressure are controlling it. We will continue with same management. 8. Disposition: We will continue to monitor this patient closely following leads from Nephrology. cc: Ronn Ceja MD
[2018-10-27] MEDS: LOKELMA POWDER PACKET PO SCH ×2 (13:44→21:59)
[2018-10-27] MEDS: NS 1,000 ML IV SCH (17:15)
[2018-10-27] MEDS: FLOMAX PO SCH (17:21)
[2018-10-27] MEDS: ULORIC PO SCH (17:21)
[2018-10-27] MEDS: ROCEPHIN 2 GM in NS 50 ML IV SCH ×2 (17:22→19:03)
[2018-10-27] MEDS: ZOCOR PO SCH (20:32)
[2018-10-27] MEDS: ZITHROMAX 500 MG/NS 500 MG/250 ML IVPB IV SCH (20:32)
[2018-10-28] MEDS: NORCO-10 PO PRN ×2 (00:07→10:34)
[2018-10-28] MEDS: NS 1,000 ML IV SCH (05:07)
[2018-10-28] MEDS: PRILOSEC PO SCH (06:14)
[2018-10-28] MEDS: SYNTHROID PO SCH (06:14)
[2018-10-28 07:35] LABS: BASO# 0.03 X1000 (0.0-0.2); BASO% 0.2 % (0.0-0.8); EOS# 0.02 X1000 (0.0-0.7); EOS% 0.2 % (0.0-10.0); HEMATOCRIT 32.7 % (42.0-52.0); HEMOGLOBIN 11.4 g/dL (14.0-18.0); IMM GRAN# 0.35 X1000 (0.0-0.04); IMM GRAN% 2.6 % (0.0-0.5); LYMPH# 1.69 X1000 (1.2-3.4); LYMPH% 12.8 % (20.5-51.1); MCH 29.8 PG (27-31); MCHC 34.9 g/dL (33-37); MCV 85.4 FL (81-99); MONO# 0.73 X1000 (0.11-0.59); MONO% 5.5 % (1.7-9.3); MPV 10.5 FL (7.4-10.4); NEUT# 10.41 X1000 (1.4-6.5); NEUT% 78.7 % (42.2-75.2); PLT 267 X1000 (130-400); RBC 3.83 XMIL (4.7-6.1); RDW 12.7 % (11.5-14.5); WBC 13.23 X1000 (4.8-10.8)
[2018-10-28 07:50] LABS: CALCIUM 8.5 mg/dL (8.8-10.2); CREATININE 3.2 mg/dL (0.7-1.2); PHOSPHORUS 5.5 mg/dL (2.7-4.5); POTASSIUM 4.3 mmol/L (3.5-5.1)
[2018-10-28] MEDS: DUONEB (A & A) INH SCH ×5 (08:14→22:52)
[2018-10-28] MEDS: MIRALAX PO SCH ×2 (10:29→20:05)
[2018-10-28] MEDS: PREDNISONE PO SCH (10:29)
[2018-10-28] MEDS: SODIUM BICARBONATE PO SCH ×2 (10:29→20:05)
[2018-10-28] MEDS: TOPROL XL PO SCH ×2 (10:30→20:05)
[2018-10-28] MEDS: ZYRTEC PO SCH (10:30)
[2018-10-28] MEDS: LOKELMA POWDER PACKET PO SCH (11:56)
--- NOTE | 2018-10-28 13:17 | NEPHROLOGY PROGRESS NOTE ---
DATE: 10/28/2018 SUBJECTIVE: He states he is feeling much better today. No shortness of breath. His main complaint is constipation. OBJECTIVE: Vital Signs: Blood pressure 127/66, heart rate 83, respirations 17, afebrile. General: No acute distress. Skin: Warm and dry. HEENT: Conjunctivae are pink. Neck: Veins are distended. Heart: Is regular. No gallops. Respiratory: Lungs are equal. No crackles or wheezes. Abdomen: Soft, nontender. Bowel sounds present. Extremities: 1+ edema. No clubbing or cyanosis. IMPRESSION: Acute kidney injury overlying chronic kidney disease. His labs have been stable over the last 2 days. I will stop his IV fluids today as he appears moderately volume expanded. Electrolytes and acid-base are acceptable. Okay for discharge from my perspective. cc: Santos Gibson MD
[2018-10-28] MEDS ORDERED: SAMSCA PO ONE (15:27)
--- NOTE | 2018-10-28 15:50 | PROGRESS NOTE ---
DATE: 10/28/2018 SUBJECTIVE: The patient has no major complaints. OBJECTIVE: Blood pressure 130/72, heart rate 83, respiratory 18, temperature 98 degrees, 98% on 2 L.Cardiovascular: Regular rate and rhythm. Pulmonary: Bilateral breath sounds. Clear to auscultation. GI: Soft, nontender, nondistended. Bowel sounds are positive. LABORATORY DATA: Sodium has gone up 131 after Samsca yesterday. BUN is 96, creatinine 3.2, calcium 5.5. Urine sodiums though have been consistently low like very low like pre renal azotemia low. PROBLEM LIST: 1. Acute respiratory failure. That seems to be stable. He is on Rocephin and azithromycin, although it does not described that he has pneumonia and his CT scan was negative for pneumonia so I think we do not need to double cover him anymore so I think we can stop the azithromycin and just leave him on the Rocephin and he can be discharged on Omnicef because he does not have pneumonia it is just a chronic obstructive pulmonary disease exacerbation. 2. Hyponatremia. I do think it is reset osmostat. He has responded to Samsca so may give him 1 more dose just lower dose but this is not clearly syndrome of inappropriate antidiuretic hormone secretion. His urine sodium is normal but his urine osmolalities is high. I guess we have attempted fluids and that made the sodium worse perhaps. In any case nephrology is following, they stopped fluids yesterday and also said that he could be discharged. Sodium level is a little lower today but in any case he is also on prednisone that may be explaining his BUN elevation. 3. Hypothyroidism is stable. DISPOSITION: I think if his sodium is stable tomorrow I anticipate we could discharge him. cc: David Burgess MD
[2018-10-28] MEDS ORDERED: DUONEB (A & A) INH PRN (15:53)
[2018-10-28] MEDS ORDERED: NORCO-10 PO PRN (15:55)
[2018-10-28] MEDS: FLOMAX PO SCH (16:27)
[2018-10-28] MEDS: ULORIC PO SCH (16:27)
[2018-10-28] MEDS: ROCEPHIN 2 GM in NS 50 ML IV SCH (17:47)
[2018-10-28] MEDS ORDERED: ZOCOR PO SCH (21:00)
[2018-10-29] MEDS ORDERED: SYNTHROID PO SCH (07:00)
[2018-10-29] MEDS ORDERED: PRILOSEC PO SCH (07:00)
[2018-10-29 07:09] LABS: BASO# 0.04 X1000 (0.0-0.2); BASO% 0.3 % (0.0-0.8); EOS# 0.02 X1000 (0.0-0.7); EOS% 0.2 % (0.0-10.0); HEMATOCRIT 32.4 % (42.0-52.0); HEMOGLOBIN 11.1 g/dL (14.0-18.0); IMM GRAN# 0.35 X1000 (0.0-0.04); IMM GRAN% 2.8 % (0.0-0.5); LYMPH# 1.45 X1000 (1.2-3.4); LYMPH% 11.7 % (20.5-51.1); MCH 29.8 PG (27-31); MCHC 34.3 g/dL (33-37); MCV 87.1 FL (81-99); MONO% 10.5 % (1.7-9.3); MPV 9.8 FL (7.4-10.4); NEUT% 74.5 % (42.2-75.2); PLT 247 X1000 (130-400); RBC 3.72 XMIL (4.7-6.1); RDW 12.8 % (11.5-14.5); WBC 12.36 X1000 (4.8-10.8)
[2018-10-29 07:30] LABS: ALBUMIN 3.5 g/dL (3.5-5.0); PHOSPHORUS 3.5 mg/dL (2.7-4.5); POTASSIUM 4.1 mmol/L (3.5-5.1)
[2018-10-29] MEDS: DUONEB (A & A) INH SCH ×3 (07:50→15:30)
[2018-10-29] MEDS ORDERED: ZYRTEC PO SCH (09:00)
[2018-10-29] MEDS: MIRALAX PO SCH (09:32)
[2018-10-29] MEDS: TOPROL XL PO SCH (09:32)
[2018-10-29] MEDS: PREDNISONE PO SCH (09:32)
[2018-10-29] MEDS: SODIUM BICARBONATE PO SCH (09:32)
[2018-10-29] MEDS ORDERED: ROCEPHIN 1 GM in NS 50 ML IV ONE (13:51)
[2018-10-29] MEDS ORDERED: NS 500 ML IV ONE (14:02)
--- NOTE | 2018-10-29 15:43 | DISCHARGE SUMMARY ---
ADMISSION DATE: 10/24/2018 DISCHARGE DATE: 10/29/2018 This is a discharge summary am ovidio admit date was 819 discharge is a 25 or 11/01/2024. DISCHARGE DIAGNOSES: 1. Acute kidney injury. 2. Hyponatremia. 3. Chronic obstructive pulmonary disease exacerbation, acute. 4. Hyperkalemia, resolved. 5. Hypothyroidism. CONSULTATIONS: Nephrology. PROCEDURES: None. This is a 73-year-old male with COPD, presenting with shortness of breath. He was also found to have a BUN and creatinine of 28 and 2.4. Sodium was low at 125. He was treated with breathing treatments, steroids, antibiotics, gentle fluids. Elevated D-dimer was analyzed with a V/Q scan that was negative low probability. Lower extremity venous Doppler showed no DVT. He slowly improved. However, I think he started developing progressive renal failure. He had a chest CT done on the that showed COPD but no pneumonia. He had been kind of treated for pneumonia. His BUN and creatinine had increased to 3.7, not clear why he had renal dysfunction. He was on thiazide diuretics as an outpatient, which I think we will stop because I do not think they will be helpful long-term. With hydration he improved. His hyponatremia actually improved with Samsca but it was a reset osmostat kind of situation because his urine electrolytes showed a high urine osmolality but a normal urine sodium even in the face of being on diuretics. His BUN and creatinine decreased to 73 and 2, which is pretty much close to baseline. His sodium was 139. He was felt stable for discharge on the . White count is down to 12. DISCHARGE MEDICATIONS: As follows: Flomax 0.4 daily, Zocor 40 daily, Advair Diskus 250 50 b.i.d., Norvasc 10 daily, Combivent q. 6 h., [place] p.r.n., Zyrtec 5 daily, Synthroid 75 daily, Prilosec 40 daily, Toprol-XL 100 b.i.d., and Uloric 40 daily. We are going to stop his triamterene, also given a prescription for Ceftin 250 b.i.d. for another 7 days and then a prednisone taper. Follow up with Dr. Gibson in 1 to 2 weeks for repeat labs concerning his kidney function and his PCP, Dr. Colvin to make sure that he has no other major issues with his COPD and it has resolved. He will be evaluated for home oxygen. cc: David Burgess MD
[2018-10-29] MEDS: FLOMAX PO SCH (16:13)
[2018-10-29] MEDS: ULORIC PO SCH (16:13)
[2018-10-29 16:16] VITALS: BP 139/68
== END 2018-10-29 16:58 | disposition home or self-care (01) | DRG 191 ==
LOC: P.MEDSURG 01:52 → P.ED 01:52 → SUATTDRO 10-24 09:46 → 1N 10-25 16:59
PROVIDERS: ATTEND Internal Medicine